=== PATIENT | male | born 1940 | race Caucasian/White ===

== ENCOUNTER → 2018-03-28 | Outpatient (CLI) | payer MEDICARE ==
--- NOTE | 2018-03-28 16:45 | PCVCIMAG ---
APPROVED REPORT Study performed: 03/28/2018 15:44:08 EXAM: Comprehensive 2D, Doppler, and color-flow Echocardiogram Patient Location: Echo lab Room #: 2Status: routine BSA: 2.07 HR: 61 bpmBP: 138/80 mmHg Rhythm: NSR Other Information Study Quality: Good Risk Factors: Cardiac Risk Factors: Hyperlipidemia Indications Abnormal ECG Pre-Op 2D Dimensions IVSd: 13.12 (7-11mm)LVOT Diam: 20.47 (18-24mm) LVDd: 50.13 mm PWd: 8.37 (7-11mm)Ascending Ao: 34.35 (22-36mm) LVDs: 32.60 (25-40mm) Left Atrium: 38.77 (27-40mm) Aortic Root: 32.36 mm LV Single Plane 4CH: 59.00 % LV Single Plane 2CH: 56.46 % Biplane EF: 57.7 % Volumes Left Atrial Volume (Systole) Single Plane 4CH: 66.05 mLSingle Plane 2CH: 59.45 mL Biplane LA Volume: 65.00 mLLA ESV Index: 31.00 mL/m2 Aortic Valve AoV Peak Earl.: 1.05 m/s AO Peak Gr.: 4.40 mmHgLVOT Max P.78 mmHg AO Mean Gr.: 1.65 mmHg AO V2 Mean: 0.52 m/sLVOT Max V: 0.97 m/s AO V2 VTI: 23.33 cm SUMI Vmax: 3.05 cm2 AI Vmax: 3.71 m/s AI [place]: 2.02 m/s2 AI PHT: 536.08 ms Mitral Valve E/A Ratio: 0.8 MV Decel. Time: 203.63 ms MV E Max Earl.: 0.72 m/s MV A Earl.: 0.96 m/s IVRT: 110.73 ms TDI E/Lateral E': 8.00E/Medial E': 12.00 Medial E' Earl.: 0.06 m/s Lateral E' Earl.: 0.09 m/s Pulmonary Valve PV Peak Earl.: 0.92 m/sPV Peak Gr.: 3.40 mmHg Pulmonary Vein P Vein S: 0.43 m/sP Vein A: 0.48 m/s P Vein D: 0.47 m/sP Vein A Dur.: 156.9 msec P Vein S/D Ratio: 0.91 Tricuspid Valve TR Peak Earl.: 2.51 m/s TR Peak Gr.: 25.26 mmHg TV Vmax: 0.77 m/sPA Pressure: 32.00 mmHg Left Ventricle The left ventricle is normal size. There is normal LV segmental wall motion. Mild basal septal hypertrophy is present. Left ventricular systolic function is normal. The left ventricular ejection fraction is within the normal range. LVEF is 55-60%. Mild diastolic dysfunction is present (impaired relaxation pattern). Right Ventricle The right ventricle is normal size. The right ventricular systolic function is normal. Atria The left atrium size is normal. The right atrium size is normal. Aortic Valve The aortic valve is mildly calcified. Mild aortic regurgitation. There is no aortic valvular stenosis. Mitral Valve The mitral valve is normal in structure. Mild mitral regurgitation. No evidence of mitral valve stenosis. Tricuspid Valve The tricuspid valve is normal in structure. Mild tricuspid regurgitation with a PA pressure of 32 mmHg. Pulmonic Valve The pulmonary valve is normal in structure. Mild pulmonic regurgitation. Great Vessels The aortic root is normal in size. The ascending aorta is normal in size. Aortic arch is normal in caliber. IVC is normal in size and collapses >50% with inspiration. Pericardium There is no pericardial effusion. There is no pleural effusion. <Conclusion> Left ventricular systolic function is normal. There is normal LV segmental wall motion. LVEF is 55-60%. Mild diastolic dysfunction The aortic valve is mildly calcified. Mild aortic regurgitation, no stenosis. The mitral valve is normal in structure. Mild mitral regurgitation. Mild tricuspid regurgitation with a pulmonary artery pressure of 32 mmHg. There is no pericardial effusion.
== END | disposition home or self-care (01) ==
LOC: PCVCIMAG 15:15
PROVIDERS: ATTEND Internal Medicine Cardiovascular Disease
DX: Z01.810 Encounter for preprocedural cardiovascular examination (principal); I08.3 Combined rheumatic disorders of mitral, aortic and tricuspid valves; R94.31 Abnormal electrocardiogram [ECG] [EKG]; I10 Essential (primary) hypertension; E78.5 Hyperlipidemia, unspecified; M19.019 Primary osteoarthritis, unspecified shoulder; Z87.891 Personal history of nicotine dependence
CPT/HCPCS: 36415; 80061; 93005; 93306; G0463

== ENCOUNTER → 2018-03-28 | Outpatient (CLI) | payer MEDICARE | END | disposition home or self-care (01) | LOC: PCVCCLINIC 14:23 | PROVIDERS: ATTEND Internal Medicine | DX: R94.31 Abnormal electrocardiogram [ECG] [EKG] (principal); I10 Essential (primary) hypertension; E78.5 Hyperlipidemia, unspecified; M19.019 Primary osteoarthritis, unspecified shoulder; Z87.891 Personal history of nicotine dependence; Z79.899 Other long term (current) drug therapy | CPT/HCPCS: 36415; 80061; 93005; G0463 ==